=== PATIENT | male | born 2000 | race African-American/Black ===

== ENCOUNTER 2023-02-06 23:50 | Inpatient (IN) ==
--- NOTE | 2023-02-07 00:08 | Emergency Department Note ---
History of Present Illness General Chief complaint: Mental Health Evaluation Stated complaint: Suicidal Ideations History of Present Illness 22-year-old male via EMS reportedly has a history of schizophrenia and is homeless. Patient was reportedly at the [facility] in [place] and he stated he wanted to jump off of a bridge. Patient stopped taking his medications recently. Patient states to me that he traveled from [place] Patient has no other complaints. Patient denies alcohol he denies any other ingestions. Home Medications Medication Instructions Recorded Confirmed Type divalproex 500 mg tablet,delayed 500 mg PO BID 02/07/23 02/07/23 History release (Depakote) risperidone 0.5 mg tablet 0.5 mg PO BID 02/07/23 02/07/23 History Allergies Allergy/AdvReac Type Severity Reaction Status Date / Time No Known Allergies Allergy Verified 02/07/23 00:27 Past Med/Surg History Social History Smoking Status: Current every day smoker Tobacco Type: Cigarettes Preferred Language: Urdu Feels Safe at Home: Yes Gender Identity: Male Immunizations: Past medical history is depression and schizophrenia Review of Systems A total of 10 systems reviewed and were otherwise negative Psychiatric: + suicidal ideation Physical Exam Vital Signs Vital Signs - 24 hr 02/06/23 23:58 Temperature 36.7 C Temperature Source Oral Pulse Rate 70 Respiratory Rate 16 Respiratory Effort / Characteristics Non-Labored Spontaneous Respiratory Depth Normal Respiratory Pattern Regular Blood Pressure 152/80 H Blood Pressure Mean 104 Blood Pressure Position Sitting Pulse Oximetry 99 Oxygen Delivery Method Room Air Sepsis Recent Fever Within 48 Hours No Sepsis New/Unexplained Change in Mental Status N/A Sepsis Action Taken by Nursing No Action Required GENERAL: Patient is awake alert in no acute distress patient is resting comfortably and showing no signs of anxiety EYES: The conjunctivae are clear. The pupils are round and reactive. EARS, NOSE, MOUTH AND THROAT: The nose is without any evidence of any deformity. Mucous membranes are moist. Tongue is midline. NECK: The neck is nontender and supple. RESPIRATORY: Normal respiratory effort is noted there is no evidence of wheezing rhonchi or rales CARDIOVASCULAR: Regular rate and rhythm noted there no murmurs rubs or gallops normal S1 normal S2. GASTROINTESTINAL: The abdomen is soft. Abdomen is nontender. BACK: No midline tenderness or or step-off noted range of motion in flexion extension as well as rotation no signs of muscle spasm noted MUSCULOSKELETAL/EXTREMITIES: There is no evidence of gross deformity full range of motion is noted in the hips and shoulders. SKIN: There is no obvious evidence of any rash. There are no petechiae, pallor or cyanosis noted. NEUROLOGIC: Patient is awake alert and oriented x3 strength is symmetric Psych patient has suicidal ideations Course Reevaluation(s) Reevaluation #1: Patient is medically cleared for psychiatric evaluation. Patient is cooperative on repeat examination Time: 00:51 Reevaluation #2: Patient was evaluated by [facility] and accepted for admission Administered Medications Discontinued Medications Ibuprofen (Ibuprofen 800 Mg Tab) 800 mg PO NOW STA Stop: 02/07/23 01:08 Last Admin: 02/07/23 01:14 Dose: 800 mg Documented By: ADI Medical Decision Making Medical Records Attestation: I reviewed the patient's medical records. Home Medications Current Medication List: was personally reviewed by Laboratory Data Attestation: I reviewed the patient's lab results. Patient's lab work interpreted by me is unremarkable 02/07/23 00:05 02/07/23 00:05 Lab Results 02/07/23 02/07/23 02/07/23 Range/Units 00:05 00:05 00:05 WBC 8.37 (4.8-10.8) K/ul RBC 4.48 L (4.70-6.10) M/uL Hgb 12.9 L (14.0-18.0) g/dl Hct 39.0 L (42.0-52.0) % MCV 87.1 (80.0-100.0) fL MCH 28.8 (25.0-34.0) pg MCHC 33.1 (32.0-36.0) g/dL RDW Std Deviation 40.1 (36.4-46.3) fL RDW Coeff of Nba 12.6 (11.5-14.5) % Plt Count 311 (130-400) K/uL MPV 9.1 L (9.4-12.4) fL Immature Gran % (Auto) 0.2 % Neut % (Auto) 52.5 % Lymph % (Auto) 37.2 % [place] % (Auto) 6.9 % Eos % (Auto) 2.2 % Baso % (Auto) 1.0 % Neut # (Auto) 4.40 (1.40-6.50) K/uL Lymph # (Auto) 3.11 (1.2-3.4) K/uL [place] # (Auto) 0.58 (0.11-0.59) K/uL Eos # (Auto) 0.18 (0-0.50) K/uL Baso # (Auto) 0.08 (0-0.2) K/uL Immature Gran # (Auto) 0.02 (0.01-0.20) K/uL Sodium 138 (136-145) mmol/L Potassium 3.8 (3.5-5.1) mmol/L Chloride 102 (98-107) mmol/L Carbon Dioxide 29 (21-32) mmol/L Anion Gap 7 (3-11) BUN 18 (6-23) mg/dl Creatinine 0.77 (0.6-1.4) mg/dl Est Cr Clr Drug Dosing 197.3 ml/min Est GFR ( Amer) 147.2 ml/min Est GFR (Non-Af Amer) 127.0 ml/min BUN/Creatinine Ratio 23.4 H (10-20) Glucose 112 H (70-99(Fasting)) mg/dl Calcium 9.4 (8.6-10.3) mg/dl Total Bilirubin 0.3 (0.2-1.0) mg/dl AST 23 (13-39) U/L ALT 19 (7-52) U/L Alkaline Phosphatase 60 (34-104) U/L Total Protein 7.6 (6.0-8.3) gm/dl Albumin 4.6 (3.4-5.0) gm/dl Globulin 3.0 (2.5-4.0) gm/dl Albumin/Globulin Ratio 1.5 (0.9-2) TSH 5.228 H (0.300-4.500) uIu/ml Free T4 0.75 (0.61-1.60) ng/dl Urine Color Urine Appearance (Clear) Urine pH (4.5-7.5) Ur Specific [place] (1.000-1.030) Urine Protein (Negative) Urine Glucose (UA) (Negative) Urine Ketones (Negative) Urine Blood (Negative) Urine Nitrite (Negative) Urine Bilirubin (Negative) Urine Urobilinogen (Negative) Ur Leukocyte Esterase (Negative) Urine WBC (Auto) (0-5) /hpf Urine RBC (Auto) (0-4) /hpf U Hyaline Cast (Auto) (0-5) /lpf U Epithel Cells (Auto) (0-5) /lpf Urine Bacteria (Auto) (Negative) Salicylates (3.0-30) mg/dl Urine Opiates Screen (Neg) Ur Methadone, Qual (Neg) Acetaminophen (10-30) ug/ml Urine Barbiturates (Neg) Ur Phencyclidine (PCP) (Neg) U Amphetamin/Meth Scrn (Neg) MDMA (Ecstasy) Screen (Neg) U Benzodiazepines Scrn (Neg) Ur Cocaine Metabolite (Neg) U Marijuana (THC) Screen (Neg) Ethyl Alcohol mg/dL (<10.0) mg/dl SARS-CoV-2, RNA, NAAT (NEGATIVE) 02/07/23 02/07/23 02/07/23 Range/Units 00:05 00:05 00:05 WBC (4.8-10.8) K/ul RBC (4.70-6.10) M/uL Hgb (14.0-18.0) g/dl Hct (42.0-52.0) % MCV (80.0-100.0) fL MCH (25.0-34.0) pg MCHC (32.0-36.0) g/dL RDW Std Deviation (36.4-46.3) fL RDW Coeff of Nba (11.5-14.5) % Plt Count (130-400) K/uL MPV (9.4-12.4) fL Immature Gran % (Auto) % Neut % (Auto) % Lymph % (Auto) % [place] % (Auto) % Eos % (Auto) % Baso % (Auto) % Neut # (Auto) (1.40-6.50) K/uL Lymph # (Auto) (1.2-3.4) K/uL [place] # (Auto) (0.11-0.59) K/uL Eos # (Auto) (0-0.50) K/uL Baso # (Auto) (0-0.2) K/uL Immature Gran # (Auto) (0.01-0.20) K/uL Sodium (136-145) mmol/L Potassium (3.5-5.1) mmol/L Chloride (98-107) mmol/L Carbon Dioxide (21-32) mmol/L Anion Gap (3-11) BUN (6-23) mg/dl Creatinine (0.6-1.4) mg/dl Est Cr Clr Drug Dosing ml/min Est GFR ( Amer) ml/min Est GFR (Non-Af Amer) ml/min BUN/Creatinine Ratio (10-20) Glucose (70-99(Fasting)) mg/dl Calcium (8.6-10.3) mg/dl Total Bilirubin (0.2-1.0) mg/dl AST (13-39) U/L ALT (7-52) U/L Alkaline Phosphatase (34-104) U/L Total Protein (6.0-8.3) gm/dl Albumin (3.4-5.0) gm/dl Globulin (2.5-4.0) gm/dl Albumin/Globulin Ratio (0.9-2) TSH (0.300-4.500) uIu/ml Free T4 (0.61-1.60) ng/dl Urine Color Yellow Urine Appearance Clear (Clear) Urine pH 7.5 (4.5-7.5) Ur Specific [place] 1.020 (1.000-1.030) Urine Protein Negative (Negative) Urine Glucose (UA) Negative (Negative) Urine Ketones Negative (Negative) Urine Blood Negative (Negative) Urine Nitrite Negative (Negative) Urine Bilirubin Negative (Negative) Urine Urobilinogen Negative (Negative) Ur Leukocyte Esterase Trace H (Negative) Urine WBC (Auto) 5-10 H (0-5) /hpf Urine RBC (Auto) 0-4 (0-4) /hpf U Hyaline Cast (Auto) 0 (0-5) /lpf U Epithel Cells (Auto) 5-10 H (0-5) /lpf Urine Bacteria (Auto) Negative (Negative) Salicylates < 3.0 L (3.0-30) mg/dl Urine Opiates Screen (Neg) Ur Methadone, Qual (Neg) Acetaminophen < 3 L (10-30) ug/ml Urine Barbiturates (Neg) Ur Phencyclidine (PCP) (Neg) U Amphetamin/Meth Scrn (Neg) MDMA (Ecstasy) Screen (Neg) U Benzodiazepines Scrn (Neg) Ur Cocaine Metabolite (Neg) U Marijuana (THC) Screen (Neg) Ethyl Alcohol mg/dL < 10.0 (<10.0) mg/dl SARS-CoV-2, RNA, NAAT (NEGATIVE) 02/07/23 02/07/23 Range/Units 00:05 00:05 WBC (4.8-10.8) K/ul RBC (4.70-6.10) M/uL Hgb (14.0-18.0) g/dl Hct (42.0-52.0) % MCV (80.0-100.0) fL MCH (25.0-34.0) pg MCHC (32.0-36.0) g/dL RDW Std Deviation (36.4-46.3) fL RDW Coeff of Nba (11.5-14.5) % Plt Count (130-400) K/uL MPV (9.4-12.4) fL Immature Gran % (Auto) % Neut % (Auto) % Lymph % (Auto) % [place] % (Auto) % Eos % (Auto) % Baso % (Auto) % Neut # (Auto) (1.40-6.50) K/uL Lymph # (Auto) (1.2-3.4) K/uL [place] # (Auto) (0.11-0.59) K/uL Eos # (Auto) (0-0.50) K/uL Baso # (Auto) (0-0.2) K/uL Immature Gran # (Auto) (0.01-0.20) K/uL Sodium (136-145) mmol/L Potassium (3.5-5.1) mmol/L Chloride (98-107) mmol/L Carbon Dioxide (21-32) mmol/L Anion Gap (3-11) BUN (6-23) mg/dl Creatinine (0.6-1.4) mg/dl Est Cr Clr Drug Dosing ml/min Est GFR ( Amer) ml/min Est GFR (Non-Af Amer) ml/min BUN/Creatinine Ratio (10-20) Glucose (70-99(Fasting)) mg/dl Calcium (8.6-10.3) mg/dl Total Bilirubin (0.2-1.0) mg/dl AST (13-39) U/L ALT (7-52) U/L Alkaline Phosphatase (34-104) U/L Total Protein (6.0-8.3) gm/dl Albumin (3.4-5.0) gm/dl Globulin (2.5-4.0) gm/dl Albumin/Globulin Ratio (0.9-2) TSH (0.300-4.500) uIu/ml Free T4 (0.61-1.60) ng/dl Urine Color Urine Appearance (Clear) Urine pH (4.5-7.5) Ur Specific [place] (1.000-1.030) Urine Protein (Negative) Urine Glucose (UA) (Negative) Urine Ketones (Negative) Urine Blood (Negative) Urine Nitrite (Negative) Urine Bilirubin (Negative) Urine Urobilinogen (Negative) Ur Leukocyte Esterase (Negative) Urine WBC (Auto) (0-5) /hpf Urine RBC (Auto) (0-4) /hpf U Hyaline Cast (Auto) (0-5) /lpf U Epithel Cells (Auto) (0-5) /lpf Urine Bacteria (Auto) (Negative) Salicylates (3.0-30) mg/dl Urine Opiates Screen Neg (Neg) Ur Methadone, Qual Neg (Neg) Acetaminophen (10-30) ug/ml Urine Barbiturates Neg (Neg) Ur Phencyclidine (PCP) Neg (Neg) U Amphetamin/Meth Scrn Neg (Neg) MDMA (Ecstasy) Screen Neg (Neg) U Benzodiazepines Scrn Neg (Neg) Ur Cocaine Metabolite Neg (Neg) U Marijuana (THC) Screen Neg (Neg) Ethyl Alcohol mg/dL (<10.0) mg/dl SARS-CoV-2, RNA, NAAT NEGATIVE (NEGATIVE) MDM Narrative Medical decision making differential diagnosis includes suicidal ideation, depression, anxiety, paranoia, schizophrenia Plan is to check psychiatric labs, involve case management EMS gave me bedside report Patient will be admitted to [facility] for psychiatric treatment Impression & Plan Suicide ideation Discharge Plan Visit Data Chief Complaint: Mental Health Evaluation Stated Complaint: Suicidal Ideations ED Provider: Shashi Anne Discharge Problem: Suicide ideation Patient Disposition: Admitted As Inpatient Discharge Instructions Interventions: ED Discharge Assessment Last Done: 02/07/23 01:52
[2023-02-07 00:26] LABS: Basophils # (auto) 0.08 K/uL (0-0.2); Eosinophils # (auto) 0.18 K/uL (0-0.50); Eosinophils % (auto) 2.2 %; Hemoglobin 12.9 g/dl (14.0-18.0); Immature Granulocytes # (auto) 0.02 K/uL (0.01-0.20); Immature Granulocytes % (auto) 0.2 %; Lymphocytes # (auto) 3.11 K/uL (1.2-3.4); Lymphocytes % (auto) 37.2 %; Mean Corpuscular Hemoglobin 28.8 pg (25.0-34.0); Mean Corpuscular Hgb Conc 33.1 g/dL (32.0-36.0); Mean Corpuscular Volume 87.1 fL (80.0-100.0); Mean Platelet Volume 9.1 fL (9.4-12.4); Monocytes # (auto) 0.58 K/uL (0.11-0.59); Monocytes % (auto) 6.9 %; Neutrophils % (auto) 52.5 %; Platelet Count 311 K/uL (130-400); RDW Coefficient of Variation 12.6 % (11.5-14.5); RDW Standard Deviation 40.1 fL (36.4-46.3); Red Blood Count 4.48 M/uL (4.70-6.10); White Blood Count 8.37 K/ul (4.8-10.8)
[2023-02-07 00:32] LABS: Appearance Urine Clear (Clear); Bacteria Urine Automated Negative (Negative); Bilirubin Urine Negative (Negative); Blood Urine Negative (Negative); Cast Urine Automated 0 /lpf (0-5); Color Urine Yellow; Glucose Urine UA Negative (Negative); Ketones Urine Negative (Negative); Leukocyte Esterase Urine Trace (Negative); Nitrite Urine Negative (Negative); Protein Urine Negative (Negative); RBC Urine Automated 0-4 /hpf (0-4); Urobilinogen Urine Negative (Negative); pH Urine 7.5 (4.5-7.5)
[2023-02-07 00:43] LABS: Albumin Globulin Ratio 1.5 (0.9-2); Albumin Level 4.6 gm/dl (3.4-5.0); BUN Creatinine Ratio 23.4 (10-20); Bilirubin,Total 0.3 mg/dl (0.2-1.0); Calcium 9.4 mg/dl (8.6-10.3); Creatinine Clr Calc Pharmacy 197.3 ml/min; Est GFR (African American) 147.2 ml/min; Potassium 3.8 mmol/L (3.5-5.1); Total Protein 7.6 gm/dl (6.0-8.3)
[2023-02-07 00:47] LABS: Acetaminophen < 3 ug/ml (10-30); Amphetamines+Metham, Urine Neg (Neg); Barbiturates, Urine Neg (Neg); Benzodiazepine, Urine Neg (Neg); Cocaine, Urine Neg (Neg); MDMA (Ecstacy), Urine Neg (Neg); Methadone, Urine Neg (Neg); Opiate, Urine Neg (Neg); Phencyclidine, Urine Neg (Neg); Salicylate < 3.0 mg/dl (3.0-30)
[2023-02-07 00:59] LABS: Thyroid Stimulating Hormone 5.228 uIu/ml (0.300-4.500)
[2023-02-07] MEDS ORDERED: IBUPROFEN 800 MG TAB PO STA (01:07)
[2023-02-07 01:39] LABS: T4 Free Thyroxine 0.75 ng/dl (0.61-1.60)
[2023-02-07] MEDS ORDERED: OLANZapine 5 MG TABLET PO PRN (01:54)
[2023-02-07] MEDS ORDERED: SODIUM CHLORIDE 0.65% NA SOLN 45 ML (OCEAN) PRN (01:58)
[2023-02-07] MEDS ORDERED: BISMUTH SUBSALICYLATE LIQD 236 ML PO PRN (01:58)
[2023-02-07] MEDS ORDERED: MAGNESIUM HYDROXIDE SUSP 30 ML UDC PO PRN (01:58)
[2023-02-07] MEDS ORDERED: ALUMINUM/MAGNESIUM SUSP 30 ML UDC PO PRN (01:58)
[2023-02-07] MEDS ORDERED: ACETAMINOPHEN 325 MG TAB PO PRN (01:58)
[2023-02-07] MEDS ORDERED: hydrOXYzine HCl 25 MG TAB PO PRN ×2 (01:58)
--- NOTE | 2023-02-07 13:49 | History & Physical ---
Date of Service February 07, 2023 Impression / Recommendations Impression Kiana is 22 year old man with a history of homelessness, schizoaffective disorder, PTSD, anxiety, ADHD with many prior psychiatric hospitalizations who was admitted for interrupted suicide attempt and SI after learning of the recent of his childhood friend by suicide. Diagnostically consistent with unspecified depression with differential including complicated bereavement vs major depression (though he denies any current depressive symptoms) vs cluster B traits vs acute exacerbation of psychosis (but thoughts organized, denies current sx of psychosis) versus secondary gain/malingering given homelessness a nd desire for help with transport to [place]. He is deemed in need of psychiatric hospitalization for diagnostic clarification, safety and stabilization, medication management and development of further coping skills. Discussed medication treatment options in detail. Discussed risks, benefits and alternatives. Patient would like to restart and consented to depakote for mood stabilization and risperidone for schizoaffective disorder. Reviewed side effects including but not limited to: movement (TD, NMS), cardiac (QTc prolongation), and metabolic (stroke, insulin resistance) and necessity for fasting lipid and glucose labwork and AIMS done with score of 0 for risperidone. Baseline labs of CBC with diff, LFTs, electrolytes, were preformed and normal. Reviewed side effects with depakote including but not limited to: liver damage, hyperammonemia, sedation, tremor. MNPR due to hx of psychosis and poor hygiene with reluctance to shower (1) Schizoaffective disorder: (2) Depression, unspecified: (3) Complicated bereavement: Plan 02/07/2023: The patient was admitted to the [facility] ([facility]) on q15 min checks (behavioral with suicide precautions) for safety. The patient will participate in group, recreational, and milieu therapies and will be offered additional individual and family sessions as clinically appropriate. -Restart deapkote ER 500mg BID -restart risperidone 0.5mg BID po -Fasting lipid panel/glucose/HbA1c in the morning Inventory Assets Strengths: supportive uncle and girlfriend, future oriented about moving to [place] Needs: medication re-initiation, safety and stabilization, disposition planning for outpatient services/support Suicide Risk Level Suicide Risk Level: Moderate (q15 min suicide checks) (interrupted attempt prior to admission but now denies SI, future oriented, agrees to alert staff if he feels unsafe or requires additional support) Risk Factors Assessment Male: Yes : No Do You Have Access To A Gun?: No Health Problems: No Mental Health Diagnoses: Yes Substance Use Disorders: No (cocaine use in the past, none in last 4 months) Previous Attempt: Yes Family History of Suicide: No Previous Psychiatric Hospitalization: Yes Hopelessness: No Protective Factors Assessment Employed: No Stable Relationships: Yes Supportive Family: Yes Psychiatric History Identifying Data KIANA LORA is a 22-year-old man who is currently homeless, has a history of schizoaffective disorder bipolar type, ADHD, PTSD and anxiety, and was admitted on 02/07/23 01:42 on a 201 voluntary commitment for SI with interrupted attempt of jumping from a bridge. Chief Complaint "I'm tired of walking". History of Present Illness Kiana presented to the hospital via EMS after getting a ride to [facility] and going inside a local [employer] station and telling an employee that he attempted suicide earlier in the evening by trying to jump from a bridge. Earlier in the evening, while he was near [place], he learned that his childhood friend had recently from suicide and this caused him to feel acutely depressed and suicidal. He states he tried to jump from a bridge near [place] by someone saw him and intervened and he then apparently ran away and later got a r cheryl to [place]. He describes a long history of schizophrenia and mood symptoms but denies any current symptoms of depression, charisma nor psychosis. Rather describes feeling intense grief from his friend's and feeling tired from being homeless and moving around via hitch hiking or walking. States his uncle is like a second father and lives in [place] and that he's been trying to get back there. Smiles when discussing his girlfriend who he said is also planning to move to [place]. States he has been taking Depakote ER 500mg BID and risperidone 0.5mg BID since being discharged from an inpatient hospital in [place] last month but that he threw his medication over the bridge yesterday. Past Psychiatric History Current Psychiatric Diagnosis: schizophrenia, ADHD, bipolar Outpatient Services: none currently Previous Psych Admissions: estimates 46x in states all over the country, most recently last month in [place] for suicide attempt Do You Have Access To A Gun?: No History of Previous Suicide Attempt: Yes Describe Attempts in the Past: estimates 3-4 via overdose, last 1.5 months ago Past Medication Trials: cannot recall, thinks many Past Head Trauma/Neuro History History of Concussion/Seizure: No Allergies Allergy/AdvReac Type Severity Reaction Status Date / Time No Known Allergies Allergy Verified 02/07/23 19:30 Home Medications Medication Instructions Recorded Confirmed Type divalproex 500 mg tablet,delayed 500 mg PO BID 02/07/23 02/07/23 History release (Depakote) risperidone 0.5 mg tablet 0.5 mg PO BID 02/07/23 02/07/23 History Family History Family History of: Doesn't Know Alcohol History Hx of Alcohol Use Over the Past 12 Months: No AUDIT Total Score: 0 Smoking Use Have You Smoked or Used Tobacco Products in the Last 30 Days: Yes tobacco type: e-cigarettes Smoking Status: Current every day smoker Substance History Hx of Prescription Med Misuse Over the Past 12 Months: No Hx of Over the Counter Med Misuse Over the Past 12 Months: No Hx of Inhalent Misuse Over the Past 12 Months: No Hx of Organic Substance Use Over the Past 12 Months: No Hx of Illegal Substances/Street Drug Use Over Past 12 Months: Yes (has been clean from cocaine for four months) Problems as a Result of Past Substance Use: None Identified Personal History Living Arrangements: Homeless Living Arrangements Comments: pt reports he has been homeless for 6 years Childhood: States both his parents . His uncle is a good support Highest Grade Completed: High School Graduate Employment Status: Unemployed Marital Status: Single Number Of Children: 0 Beliefs That Will Affect Care: None Current Legal Problems: No Hx Traumatic Life Events: Yes Patient History Social History Smoking Status: Current every day smoker Tobacco Type: Cigarettes Preferred Language: Uzbek Communication Ability: Effective Assembly Line Inspector Required: No Beliefs That Will Affect Care: None Feels Safe at Home: Yes Gender Identity: Male Assistive Devices: None Review of Systems Review of Systems: All systems reviewed & are unremarkable except as noted in HPI & below Physical Exam Psychiatric: Orientation: alert and oriented x 3 Apperance: appropriately dressed and appropriately groomed Eye Contact: good eye contact Motor Behavior: steady gait and station and no abnormal motor movements Speech: normal rate/rhythm/volume of speech Affect: + constricted affect (but smiles at times) Mood: no depressed mood (endorses grief) and no anxious mood Thought Process: goal directed thought process and + concrete thought process Thought Content: reality based without delusions Suicidal Thoughts: denies suicidal thoughts (but s/p interrupted attempt) Homicidal Thoughts: denies homicidal thoughts Hallucinations: no auditory hallucinations and no visual hallucinations Cognition: recent memory grossly intact, remote memory grossly intact, attention grossly intact and language grossly intact Estimated Intelligence: consistent with education level Insight: + limited insight Judgment: + limited judgement Vital Signs (Past 24 Hours): Last Vital Signs Temp 36.7 C 02/07/23 06:38 Pulse 77 02/07/23 06:39 Resp 16 02/07/23 06:38 BP 110/72 02/07/23 06:39 Pulse Ox 99 02/07/23 03:14 O2 Del Method Room Air 02/07/23 03:14 Exam Statement: A physical exam was performed in the ED by Dr. Anne for the purposes of medical clearance. I accept that physical as correct and adequate for the purposes of the inpatient physical exam. Results & Data ([facility]) Laboratory Results Laboratory Results - last 24 hr 02/07/23 02/07/23 02/07/23 00:05 00:05 00:05 WBC 8.37 RBC 4.48 L Hgb 12.9 L Hct 39.0 L MCV 87.1 MCH 28.8 MCHC 33.1 RDW Std Deviation 40.1 RDW Coeff of Nba 12.6 Plt Count 311 MPV 9.1 L Immature Gran % (Auto) 0.2 Neut % (Auto) 52.5 Lymph % (Auto) 37.2 [place] % (Auto) 6.9 Eos % (Auto) 2.2 Baso % (Auto) 1.0 Neut # (Auto) 4.40 Lymph # (Auto) 3.11 [place] # (Auto) 0.58 Eos # (Auto) 0.18 Baso # (Auto) 0.08 Immature Gran # (Auto) 0.02 Sodium 138 Potassium 3.8 Chloride 102 Carbon Dioxide 29 Anion Gap 7 BUN 18 Creatinine 0.77 Est Cr Clr Drug Dosing 197.3 Est GFR ( Amer) 147.2 Est GFR (Non-Af Amer) 127.0 BUN/Creatinine Ratio 23.4 H Glucose 112 H Calcium 9.4 Total Bilirubin 0.3 AST 23 ALT 19 Alkaline Phosphatase 60 Total Protein 7.6 Albumin 4.6 Globulin 3.0 Albumin/Globulin Ratio 1.5 TSH 5.228 H Free T4 0.75 Urine Color Urine Appearance Urine pH Ur Specific [place] Urine Protein Urine Glucose (UA) Urine Ketones Urine Blood Urine Nitrite Urine Bilirubin Urine Urobilinogen Ur Leukocyte Esterase Urine WBC (Auto) Urine RBC (Auto) U Hyaline Cast (Auto) U Epithel Cells (Auto) Urine Bacteria (Auto) Salicylates Urine Opiates Screen Ur Methadone, Qual Acetaminophen Urine Barbiturates Ur Phencyclidine (PCP) U Amphetamin/Meth Scrn MDMA (Ecstasy) Screen U Benzodiazepines Scrn Ur Cocaine Metabolite U Marijuana (THC) Screen Ethyl Alcohol mg/dL SARS-CoV-2, RNA, NAAT 02/07/23 02/07/23 02/07/23 00:05 00:05 00:05 WBC RBC Hgb Hct MCV MCH MCHC RDW Std Deviation RDW Coeff of Nba Plt Count MPV Immature Gran % (Auto) Neut % (Auto) Lymph % (Auto) [place] % (Auto) Eos % (Auto) Baso % (Auto) Neut # (Auto) Lymph # (Auto) [place] # (Auto) Eos # (Auto) Baso # (Auto) Immature Gran # (Auto) Sodium Potassium Chloride Carbon Dioxide Anion Gap BUN Creatinine Est Cr Clr Drug Dosing Est GFR ( Amer) Est GFR (Non-Af Amer) BUN/Creatinine Ratio Glucose Calcium Total Bilirubin AST ALT Alkaline Phosphatase Total Protein Albumin Globulin Albumin/Globulin Ratio TSH Free T4 Urine Color Yellow Urine Appearance Clear Urine pH 7.5 Ur Specific [place] 1.020 Urine Protein Negative Urine Glucose (UA) Negative Urine Ketones Negative Urine Blood Negative Urine Nitrite Negative Urine Bilirubin Negative Urine Urobilinogen Negative Ur Leukocyte Esterase Trace H Urine WBC (Auto) 5-10 H Urine RBC (Auto) 0-4 U Hyaline Cast (Auto) 0 U Epithel Cells (Auto) 5-10 H Urine Bacteria (Auto) Negative Salicylates < 3.0 L Urine Opiates Screen Ur Methadone, Qual Acetaminophen < 3 L Urine Barbiturates Ur Phencyclidine (PCP) U Amphetamin/Meth Scrn MDMA (Ecstasy) Screen U Benzodiazepines Scrn Ur Cocaine Metabolite U Marijuana (THC) Screen Ethyl Alcohol mg/dL < 10.0 SARS-CoV-2, RNA, NAAT 02/07/23 02/07/23 00:05 00:05 WBC RBC Hgb Hct MCV MCH MCHC RDW Std Deviation RDW Coeff of Nba Plt Count MPV Immature Gran % (Auto) Neut % (Auto) Lymph % (Auto) [place] % (Auto) Eos % (Auto) Baso % (Auto) Neut # (Auto) Lymph # (Auto) [place] # (Auto) Eos # (Auto) Baso # (Auto) Immature Gran # (Auto) Sodium Potassium Chloride Carbon Dioxide Anion Gap BUN Creatinine Est Cr Clr Drug Dosing Est GFR ( Amer) Est GFR (Non-Af Amer) BUN/Creatinine Ratio Glucose Calcium Total Bilirubin AST ALT Alkaline Phosphatase Total Protein Albumin Globulin Albumin/Globulin Ratio TSH Free T4 Urine Color Urine Appearance Urine pH Ur Specific [place] Urine Protein Urine Glucose (UA) Urine Ketones Urine Blood Urine Nitrite Urine Bilirubin Urine Urobilinogen Ur Leukocyte Esterase Urine WBC (Auto) Urine RBC (Auto) U Hyaline Cast (Auto) U Epithel Cells (Auto) Urine Bacteria (Auto) Salicylates Urine Opiates Screen Neg Ur Methadone, Qual Neg Acetaminophen Urine Barbiturates Neg Ur Phencyclidine (PCP) Neg U Amphetamin/Meth Scrn Neg MDMA (Ecstasy) Screen Neg U Benzodiazepines Scrn Neg Ur Cocaine Metabolite Neg U Marijuana (THC) Screen Neg Ethyl Alcohol mg/dL SARS-CoV-2, RNA, NAAT NEGATIVE Current Inpatient Medications Current Inpatient Medications: Current Inpatient Medications Acetaminophen (Acetaminophen 325 Mg Tab) 650 mg PO Q4H PRN PRN Reason: Headache or Minor Fever Stop: 03/09/23 01:57 Al Hydrox/Mg Hydrox/Simethicone (Aluminum/Magnesium Susp 30 Ml Udc) 30 ml PO Q4H PRN PRN Reason: GI Upset Stop: 03/09/23 01:57 Bismuth Subsalicylate (Bismuth Subsalicylate Liqd 236 Ml) 15 ml PO PRN PRN PRN Reason: Loose Stool Stop: 03/09/23 01:57 Hydroxyzine HCl (Hydroxyzine Hcl 25 Mg Tab) 50 mg PO HSZ PRN PRN Reason: Insomnia Stop: 03/09/23 01:57 Hydroxyzine HCl (Hydroxyzine Hcl 25 Mg Tab) 25 mg PO Q4H PRN PRN Reason: Anxiety Stop: 03/09/23 01:57 Last Admin: 02/07/23 11:53 Dose: 25 mg Magnesium Hydroxide (Magnesium Hydroxide Susp 30 Ml Udc) 30 ml PO DAILY PRN PRN Reason: Constipation Stop: 03/09/23 01:57 Olanzapine (Olanzapine 5 Mg Tablet) 5 mg PO BID PRN PRN Reason: Psychosis/Agitation Stop: 03/09/23 08:59 Sodium Chloride (Sodium Chloride 0.65% Na Soln 45 Ml (R[place]ide)) 1 - 2 sprays NA PRN PRN PRN Reason: Nasal Dryness/Congestion Stop: 03/09/23 01:57
[2023-02-07] MEDS: risperiDONE 0.5 MG TABLET PO SCH (20:19)
[2023-02-07] MEDS: DIVALPROEX DELAY RELEASE 500 MG TAB PO SCH (20:19)
[2023-02-08] MEDS: risperiDONE 0.5 MG TABLET PO SCH (07:30)
[2023-02-08] MEDS: DIVALPROEX DELAY RELEASE 500 MG TAB PO SCH (07:31)
--- NOTE | 2023-02-08 08:37 | Discharge Summary ---
Date of Service February 08, 2023 History of Present Illness Mingo presented to the hospital via EMS after getting a ride to [employer] and going inside a local [employer] station and telling an employee that he attempted suicide earlier in the evening by trying to jump from a bridge. Earlier in the evening, while he was near [place], he learned that his childhood friend had recently from suicide and this caused him to feel acutely depressed and suicidal. He states he tried to jump from a bridge near [place] by someone saw him and intervened and he then apparently ran away and later got a ride to [employer]. He describes a long history of schizophrenia and mood symptoms but denies any current symptoms of depression, charisma nor psychosis. Rather describes feeling intense grief from his friend's and feeling tired from being homeless and moving around via hitch hiking or walking. States his uncle is like a second father and lives in [place] and that he's been trying to get back there. Smiles when discussing his girlfriend who he said is also planning to move to [place]. States he has been taking Depakote ER 500mg BID and risperidone 0.5mg BID since being discharged from an inpatient hospital in [place] last month but that he threw his medication over the bridge yesterday. Physical Exam Vital Signs (Past 24 Hours) Last Vital Signs Temp 36.0 C L 02/08/23 06:00 Pulse 77 02/07/23 06:39 Resp 16 02/08/23 06:00 BP 110/72 02/07/23 06:39 Pulse Ox 99 02/07/23 03:14 O2 Del Method Room Air 02/07/23 03:14 See admission H&P and DOD summary. Principal Diagnosis Unspecified depressive disorder Psychiatric Data See daily stay summary. In short, patient was engaged with the social/therapeutic milieu of the unit, safety was maintained and the patient was cooperative with care. Medication changes included re-starting his previous medications of Depakote ER 500mg BID and risperidone 0.5mg BID po for schizoaffective disorder and they tolerated this well. Recommend depakote level in 3-5 days. Recommend repeat CBC with diff, and LFTs at one month. Then CBC with diff, Depakote level, and LFTs annually or anytime symptoms arise. Baseline labs of fasting glucose, fasting lipid profile were within normal limits with elevated weight, BMI 28.7. Recommend repeat weight in one month. Recommend repeat fasting glucose, HbA1c and fasting lipid profile every 12 weeks and then annually. If symptoms arise recommend checking BP, EKG, prolactin level as clinically indicated or relevant. A safety plan was completed prior to discharge, he declined a support meeting. Minog was very future-oriented about returning to [place] where he has family support and feels he will do well. 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 Day of Discharge Assessment Today the patient voices readiness for discharge. They note improvement in mood and anxiety. They deny thoughts of harm to self or others. Thoughts are organized and they are clinically improved from admission. There is no evidence of psychosis. They improved in the hospital with support and medication adjustments. They agree to take medications as prescribed and keep follow-up appointments. At the time of the discharge they are deemed to be stable and appropriate for outpatient level of care. They are not deemed to be at imminent risk of harm to self or others. They are aware of emergency and crisis services. Knows to call 911 or go to nearest emergency care center if in a crisis which cannot be handled as an outpatient. Transition of Care Transition Of Care Record: was reviewed with the patient Advance Directives Advance Directives Information Provided: Yes Advance Directives: No Mental Health Advance Directive: No Advance Directives on File: No Living Will: No Power of Peripheral Edp Equipment Operator: No Advance Directives Reason:: Declines as Mental Health Visit. Suicide Risk Level Suicide Risk Level Comments: Acute risk is low given improvement in mood and denial of SI, lack of access to lethal means, plan to avoid substance use, improvement in sleep, hopefulness and improvement in psychosis. Chronic risk is moderate to high given multiple non- modifiable risk factors: psychiatric co-morbid diagnoses, periods of impu lsivity, prior attempts, prior psychiatric hospitalizations, poor social support, mood disorder, schizophrenia, childhood trauma but also with protective factors including: will be starting a new job, sense of responsibility to family and social supports, positive coping skills, positive problem solving, capacity to establish therapeutic alliance, willingness to engage with treatment. Counseled on ways to reduce acute and chronic risk including engaging with outpatient providers, using safety plan if needed, utilizing supports, taking medication, and using coping skills. Modifiable risk factors of SI and depression were addressed during hospitalization through development of new coping skills, safety planning, help returning to family in [place] and medication adjustments. Risk Factors Assessment Male: Yes : No Do You Have Access To A Gun?: No Health Problems: No Mental Health Diagnoses: Yes Substance Use Disorders: No (cocaine use in the past, none in last 4 months) Previous Attempt: Yes Family History of Suicide: No Previous Psychiatric Hospitalization: Yes Hopelessness: No Protective Factors Assessment Employed: No Stable Relationships: Yes Supportive Family: Yes Discharge Data Lab Results 02/07/23 02/07/23 02/07/23 00:05 00:05 00:05 WBC 8.37 RBC 4.48 L Hgb 12.9 L Hct 39.0 L MCV 87.1 MCH 28.8 MCHC 33.1 RDW Std Deviation 40.1 RDW Coeff of Nba 12.6 Plt Count 311 MPV 9.1 L Immature Gran % (Auto) 0.2 Neut % (Auto) 52.5 Lymph % (Auto) 37.2 Milam % (Auto) 6.9 Eos % (Auto) 2.2 Baso % (Auto) 1.0 Neut # (Auto) 4.40 Lymph # (Auto) 3.11 Milam # (Auto) 0.58 Eos # (Auto) 0.18 Baso # (Auto) 0.08 Immature Gran # (Auto) 0.02 Sodium 138 Potassium 3.8 Chloride 102 Carbon Dioxide 29 Anion Gap 7 BUN 18 Creatinine 0.77 Est Cr Clr Drug Dosing 197.3 Est GFR ( Amer) 147.2 Est GFR (Non-Af Amer) 127.0 BUN/Creatinine Ratio 23.4 H Glucose 112 H Calcium 9.4 Total Bilirubin 0.3 AST 23 ALT 19 Alkaline Phosphatase 60 Total Protein 7.6 Albumin 4.6 Globulin 3.0 Albumin/Globulin Ratio 1.5 TSH 5.228 H Free T4 0.75 Urine Color Urine Appearance Urine pH Ur Specific [place] Urine Protein Urine Glucose (UA) Urine Ketones Urine Blood Urine Nitrite Urine Bilirubin Urine Urobilinogen Ur Leukocyte Esterase Urine WBC (Auto) Urine RBC (Auto) U Hyaline Cast (Auto) U Epithel Cells (Auto) Urine Bacteria (Auto) Salicylates Urine Opiates Screen Ur Methadone, Qual Acetaminophen Urine Barbiturates Ur Phencyclidine (PCP) U Amphetamin/Meth Scrn MDMA (Ecstasy) Screen U Benzodiazepines Scrn Ur Cocaine Metabolite U Marijuana (THC) Screen Ethyl Alcohol mg/dL SARS-CoV-2, RNA, NAAT 02/07/23 02/07/23 02/07/23 00:05 00:05 00:05 WBC RBC Hgb Hct MCV MCH MCHC RDW Std Deviation RDW Coeff of Nba Plt Count MPV Immature Gran % (Auto) Neut % (Auto) Lymph % (Auto) Milam % (Auto) Eos % (Auto) Baso % (Auto) Neut # (Auto) Lymph # (Auto) Milam # (Auto) Eos # (Auto) Baso # (Auto) Immature Gran # (Auto) Sodium Potassium Chloride Carbon Dioxide Anion Gap BUN Creatinine Est Cr Clr Drug Dosing Est GFR ( Amer) Est GFR (Non-Af Amer) BUN/Creatinine Ratio Glucose Calcium Total Bilirubin AST ALT Alkaline Phosphatase Total Protein Albumin Globulin Albumin/Globulin Ratio TSH Free T4 Urine Color Yellow Urine Appearance Clear Urine pH 7.5 Ur Specific [place] Laird 1.020 Urine Protein Negative Urine Glucose (UA) Negative Urine Ketones Negative Urine Blood Negative Urine Nitrite Negative Urine Bilirubin Negative Urine Urobilinogen Negative Ur Leukocyte Esterase Trace H Urine WBC (Auto) 5-10 H Urine RBC (Auto) 0-4 U Hyaline Cast (Auto) 0 U Epithel Cells (Auto) 5-10 H Urine Bacteria (Auto) Negative Salicylates < 3.0 L Urine Opiates Screen Ur Methadone, Qual Acetaminophen < 3 L Urine Barbiturates Ur Phencyclidine (PCP) U Amphetamin/Meth Scrn MDMA (Ecstasy) Screen U Benzodiazepines Scrn Ur Cocaine Metabolite U Marijuana (THC) Screen Ethyl Alcohol mg/dL < 10.0 SARS-CoV-2, RNA, NAAT 02/07/23 02/07/23 00:05 00:05 WBC RBC Hgb Hct MCV MCH MCHC RDW Std Deviation RDW Coeff of Nba Plt Count MPV Immature Gran % (Auto) Neut % (Auto) Lymph % (Auto) Milam % (Auto) Eos % (Auto) Baso % (Auto) Neut # (Auto) Lymph # (Auto) Milam # (Auto) Eos # (Auto) Baso # (Auto) Immature Gran # (Auto) Sodium Potassium Chloride Carbon Dioxide Anion Gap BUN Creatinine Est Cr Clr Drug Dosing Est GFR ( Amer) Est GFR (Non-Af Amer) BUN/Creatinine Ratio Glucose Calcium Total Bilirubin AST ALT Alkaline Phosphatase Total Protein Albumin Globulin Albumin/Globulin Ratio TSH Free T4 Urine Color Urine Appearance Urine pH Ur Specific [place]aird Urine Protein Urine Glucose (UA) Urine Ketones Urine Blood Urine Nitrite Urine Bilirubin Urine Urobilinogen Ur Leukocyte Esterase Urine WBC (Auto) Urine RBC (Auto) U Hyaline Cast (Auto) U Epithel Cells (Auto) Urine Bacteria (Auto) Salicylates Urine Opiates Screen Neg Ur Methadone, Qual Neg Acetaminophen Urine Barbiturates Neg Ur Phencyclidine (PCP) Neg U Amphetamin/Meth Scrn Neg MDMA (Ecstasy) Screen Neg U Benzodiazepines Scrn Neg Ur Cocaine Metabolite Neg U Marijuana (THC) Screen Neg Ethyl Alcohol mg/dL SARS-CoV-2, RNA, NAAT NEGATIVE Hospital Course (1) Schizoaffective disorder: (2) Depression, unspecified: (3) Complicated bereavement: Plan 02/07/2023: The patient was admitted to the [facility] ([facility] unit) on q15 min checks (behavioral with suicide precautions) for safety. The patient will participate in group, recreational, and milieu therapies and will be offered additional individual and family sessions as clinically appropriate. -Restart deapkote ER 500mg BID -restart risperidone 0.5mg BID po -Fasting lipid panel/glucose/HbA1c in the morning Mental Health & Subst Abuse Tx Therapist Name of Therapist: N/A Ciaio Lumite Injector Name of Ciaio Lumite Injector: N/A Post Discharge Appointments Other #1: Name of Aftercare Appointment: [facility] Phone Number of Aftercare Appointment: Time of Aftercare Appointment: Please contact to establish mental health care upon arrival. Aftercare Appointment Comment: [id number] [facility], [place] [address] Contact Information Discharge Discharge Address: [place] [address] Discharge Plan Discharge Items Patient Disposition: Home - Self-Care Reason For Visit: UNSPECIFIED MOOD DISORDER Discharge Diagnosis: Unspecified depression Activity: Resume your previous activity Non-emergency contact: Psychiatrist and Therapist Call non-emergency contact if: you have any medication questions and your symptoms worsen Follow-up/Referrals: PCP,NO [Primary Care Provider] - Diet: Regular Addtl Attending Provider Instructions: SPECIAL CARE INSTRUCTIONS: 1. Follow through with your scheduled aftercare appointments. If unable to keep an appointment, please call to reschedule. 2. Take your medication only as prescribed. Medication should not be changed or stopped without the approval of your doctor. In the event of worsening symptoms or concerns about side effects, contact your doctor immediately. 3. Utilize new healthy coping skills, anger management skills, and stress management skills learned during your hospitalization. Journal feelings and process them with a support person. Identify stressors or situations that may result in relapse, deterioration or inappropriate behaviors and develop a plan to deal with those issues. 4. If your coping skills are ineffective and you are in crisis, contact your outpatient providers for direction. If unable to reach your providers, please call the [facility] CRISIS LINE AT , go to the [facility] walk-in center at [address], [place], or go to the closest Emergency Room. 5. Avoid alcohol and un-prescribed drugs. 6. You have been provided with the Mental Health Advance Directives Pamphlet for your review. 7. Your condition is stable for discharge to outpatient level of care, but recovery is an ongoing process. Ifthoughts to harm yourself or others return, follow the safety plan developed during your stay. Planning for a safe return home includes securing weapons. Our treatment team recommends weaponsbe removed from the home until your outpatient provider reassesses your progress. In rare cases where the items themselvescannot be removed, guns and ammunitionshould be secured separatelyand keys stored by a reliable personoutside of the home. If you were admitted on an involuntary commitment, the police or other legal authorities may be involved in this process. AFTERCARE APPOINTMENTS: * Please call your insurance company prior to your scheduled appointment to confirm your aftercare providers are covered. Take your insurance information to your appointments. WHO TO CALL AND WHEN: Medical Emergencies: For questions or emergencies related to your hospital stay, please contact the Inpatient Behavioral Health Unit at [phone]. A computer technical specialist is on-call 09/04 for the Behavioral Health Unit for emergencies National Crisis Line: [phone] At any time you feel your situation is an emergency, you may also call 911 immediately. Pending Studies at Discharge: No Stand-Alone Forms: My [facility] Medications and DC Order Prescriptions: Continued divalproex [Depakote] 500 mg Tablet,Delayed Release (Dr/Ec) 500 mg PO BID 30 Days Qty: 60 0RF risperidone 0.5 mg Tablet 0.5 mg PO BID 30 Days Qty: 60 0RF Discharge Orders: Discharge Order (Routine); Ordered 02/08/23 Ordered By: Miranda Ortega Admission Data Admit Date/Time: 02/07/23 01:42 Attending Provider: Miranda Ortega Admit Provider: Miranda Ortega Primary Care Provider: PCP,NO Other Interventions: Discharge Summary Assessment (RN) Last Done: 02/08/23 12:15 PSY Interdisciplinary Discharge Planning Last Done: 02/08/23 12:15 Coding Level of Care Code 50041 D/C day mgmt > 30 min Diagnoses Schizoaffective disorder F25.9 Depression, unspecified F32.A Complicated bereavement F43.21 Time Spent (min) 35
[2023-02-08 09:05] LABS: Estimated Average Glucose 108 mg/dl; Hemoglobin A1C 5.4 % (4.5-5.6)
[2023-02-08 09:13] LABS: Chol HDL Ratio 2.9 (0-5)
== END 2023-02-08 13:50 | disposition home or self-care (01) | DRG 881 ==
LOC: ED 23:50 → 3S 02-07 01:42